=== PATIENT | male | born 1975 | race Caucasian/White ===

== ENCOUNTER 2020-08-18 12:30 | Inpatient (IN) | payer OTHER ==
[~2020-08-18] VITALS: Ht 190.5 cm; Wt 269.9 kg
== END 2020-09-02 12:00 | disposition designated cancer center or children's hospital (05) | DRG 292 ==
LOC: ER 12:30 → SEC-K 21:24 → MEDJ 21:24 → SEC-K 08-19 03:10 → MEDJ 08-19 13:01
PROVIDERS: ADMIT Internal Medicine; ATTEND Internal Medicine
PROC: BW21YZZ Computerized Tomography (CT Scan) of Abdomen and Pelvis using Other Contrast (ICD-10-PCS; principal; 2020-08-18)
PROC: BW24ZZZ Computerized Tomography (CT Scan) of Chest and Abdomen (ICD-10-PCS; 2020-08-18)
PROC: B24BZZZ Ultrasonography of Heart with Aorta (ICD-10-PCS; 2020-08-19)
PROC: BW28ZZZ Computerized Tomography (CT Scan) of Head (ICD-10-PCS; 2020-08-22)
DX: I50.21 Acute systolic (congestive) heart failure (principal); J91.8 Pleural effusion in other conditions classified elsewhere; J98.11 Atelectasis; I34.0 Nonrheumatic mitral (valve) insufficiency; I48.0 Paroxysmal atrial fibrillation; N20.0 Calculus of kidney; R55 Syncope and collapse; S00.83XA Contusion of other part of head, initial encounter; X58.XXXA Exposure to other specified factors, initial encounter; Y92.230 Patient room in hospital as the place of occurrence of the external cause